=== PATIENT | female | born 1970 | race African-American/Black ===

== ENCOUNTER 2021-11-10 08:35 | Day surgery (SDC) | payer OTHER, SELFPAY ==
[~2021-11-10] VITALS: Ht 170.2 cm; Wt 70.3 kg
[~2021-11-10 08:35] MED LIST: ARTICAINE HCL/EPINEPHRINE 4%/1:200,000 BIT 1.7 ML CARTRIDGE IJ ONE; NS IRRIG SOLN 1000 ML IR ONE
[2021-11-10 15:23] VITALS: BP_SYST 135
== END 2021-11-10 14:24 | disposition home or self-care (01) ==
LOC: SDS 08:35 → SMU 08:37 → SDS 14:24
PROVIDERS: ATTEND Dentist General Practice
DX: M27.2 Inflammatory conditions of jaws (principal); Z90.89 Acquired absence of other organs; E56.9 Vitamin deficiency, unspecified; Z79.899 Other long term (current) drug therapy; Z20.822 Contact with and (suspected) exposure to COVID-19
CPT/HCPCS: 21025; 21215; 21248; 36415; 70140; 87426; C1713 ×2

== ENCOUNTER 2021-12-08 08:56 | Day surgery (SDC) | payer OTHER ==
[~2021-12-08] VITALS: Ht 170.2 cm; Wt 70.3 kg
[~2021-12-08 08:56] MED LIST changes: +BENZOCAINE 20% GEL 32 GM BOTTLE MM ONE; +NS 250 ML BAG IV ONE
[2021-12-08 10:31] LABS: HCG,QUAL RESULT NEGATIVE (NEGATIVE)
[2021-12-08 12:17] VITALS: BP_SYST 116
== END 2021-12-08 12:10 | disposition home or self-care (01) ==
LOC: SDS 08:56 → SMU 09:02 → SDS 12:10
PROVIDERS: ATTEND Dentist General Practice
DX: M27.2 Inflammatory conditions of jaws (principal); K05.6 Periodontal disease, unspecified; J45.909 Unspecified asthma, uncomplicated; Z79.899 Other long term (current) drug therapy; Z20.822 Contact with and (suspected) exposure to COVID-19
CPT/HCPCS: 21025; 21248; 36415; 41826; 70140; 84703; 87426; C1713 ×2; J7050